=== PATIENT | male | born 1945 | race Caucasian/White ===

== ENCOUNTER 2018-07-01 14:00 | Outpatient (CLI) | payer MEDICARE, MEDICAID ==
[~2018-07-01] VITALS: Ht 170.2 cm; Wt 103.0 kg
[2018-07-01 14:00] VITALS: BP 115/67
[2018-07-01] MEDS ORDERED: PROTONIX40 M1 IVP (15:28)
--- NOTE | 2018-07-01 15:57 | GI Initial Consult Note ---
History of Present Illness General Date patient seen: Jul 01, 2018 Time patient seen: 15:51 Referring physician: ORVILLE Reason for Consultation: PANCREATIC CYST Present Illness HPI Patient is a 73 year old male referred by Dr. Toro for possible pancreatic mass concerning for neoplasm on the pancreatic head which was noted by CT at [facility]. The patent presents today denying any GI symptoms; denies abdominal pain, no N/V/D or constipation. Ambulatory NAD. Here for endoscopic ultrasound to further evaluate the possible mass. Imaging studies reviewed. The patient had colonoscopy back in 2015, noted with a few colonic polyps. Denies any unintentional weight loss or changes in dietary habits. No signs of abuse or neglect. Patient is not fall risk. Home Meds Reported Medications Pantoprazole* (PROTONIX*) 40 Mg Vial, 40 MG IVP DAILY, VIAL 07/01/18 Med list reviewed/reconciled: Yes Allergies: Coded Allergies: No Known Allergies (Unverified , 07/01/18) Patient History History Provided By: Patient, Medical Record PMH Narrative Prostate CA HLD HTN Obesity Pancreatic Lesion HH Colon, diverticulosis Past Surgical History: lower back surgery 2017 neck surgery 2011 Social History: Reports: smoking - quit Review of Systems All Other Systems: negative except mentioned in HPI Physical Exam Vital Signs Date Time Temp Pulse Resp B/P (MAP) Pulse Ox O2 Delivery O2 Flow Rate FiO2 07/01/18 14:00 98.1 76 115/67 95 98.1 Sp02 EP Interpretation: reviewed, normal General Appearance: well appearing, no apparent distress, alert Head: normocephalic EENT: PERRL/EOMI, normal ENT inspection Neck: supple Respiratory: normal breath sounds, no respiratory distress Cardiovascular: normal rate Gastrointestinal: normal inspection, non tender, soft, normal bowel sounds, non -distended Rectal: deferred Genitourinary: deferred Musculoskeletal: normal inspection, back normal Neurologic: normal inspection, alert, oriented x3, responsive Psychiatric: normal inspection, judgement/insight normal, memory normal Skin: normal inspection, normal color, no rash, warm/dry, palpation normal, well hydrated Lymphatic: normal inspection, no adenopathy GI: Plan Problems: (1) Pancreatic lesion (2) Encounter for diagnostic endoscopy (3) Diverticulosis (4) HTN (hypertension) (5) HLD (hyperlipidemia) (6) BPH (benign prostatic hyperplasia) (7) Prostate CA (8) Depressed Plan EUS scheduled 07/03/18. - [facility] obtain records from [facility] Seen with Dr. Garcia. Thank you for this patient referral. The patient was seen and examined at bedside and all new and available data was reviewed in the patients chart. I agree with the above findings, impression and plan. (Patient seen earlier today. Signature stamp does not reflect patient encounter time.). - [facility]ALTH DO[facility] Jul 01, 2018 15:57
[2018-07-01] MEDS ORDERED: CYMBALTA30 MG ORAL (16:11)
[2018-07-01] MEDS ORDERED: TAMSULOSIN HCL0.4 MG ORAL (16:11)
[2018-07-01] MEDS ORDERED: PROSCAR5 MG ORAL (16:11)
[2018-07-01] MEDS ORDERED: METOPROLOL SUCC50 MG ORAL (16:11)
[2018-07-01] MEDS ORDERED: ASPIRIN EC81 MG ORAL (16:11)
[2018-07-01] MEDS ORDERED: ATORVASTATIN CA40 MG ORAL (16:11)
[2018-07-01] MEDS ORDERED: LOSARTAN POTASS50 MG ORAL (16:11)
== END 2018-07-01 14:30 | disposition home or self-care (01) ==
LOC: PAN 14:00
DX: K86.9 Disease of pancreas, unspecified (principal); K57.90 Diverticulosis of intestine, part unspecified, without perforation or abscess without bleeding; I10 Essential (primary) hypertension; E78.5 Hyperlipidemia, unspecified; N40.0 Benign prostatic hyperplasia without lower urinary tract symptoms; C61 Malignant neoplasm of prostate
CPT/HCPCS: 99202

== ENCOUNTER 2018-07-03 08:56 | Day surgery (SDC) | payer MEDICARE, MEDICAID ==
[2018-07-03] VITALS (8 sets, daily range): BP systolic 113–141; BP diastolic 64–75
[~2018-07-03] VITALS: Ht 170.2 cm; Wt 103.0 kg
[~2018-07-03 08:56] MED LIST: ASPIRIN EC81 MG ORAL; ATORVASTATIN CA40 MG ORAL; CYMBALTA30 MG ORAL; LOSARTAN POTASS50 MG ORAL; METOPROLOL SUCC50 MG ORAL; PROSCAR5 MG ORAL; PROTONIX40 M1 IVP; TAMSULOSIN HCL0.4 MG ORAL
--- NOTE | 2018-07-03 09:49 | Pre-Procedure Note/Attestation ---
Pre-Procedure Note/Attestation Complete Prior to Procedure Planned Procedure: not applicable Procedure Narrative: eus Indications for Procedure Pre-Operative Diagnosis: panc mass Attestation I attest that I discussed the nature of the procedure; its benefits; risks and complications; and alternatives (and the risks and benefits of such alternatives ), prior to the procedure, with the patient (or the patient's legal computer help desk representative). I attest that, if there was a reasonable possibility of needing a blood transfusion, the patient (or the patient's legal computer help desk representative) was given the [facility] of Health Services standardized written summary, pursuant to the [place] Blood Safety Act ([place] Health and Safety Code # 1645, as amended). I attest that I re-evaluated the patient just prior to the surgery and that there has been no change in the patient's H&P, except as documented below: Zander Garcia MD Jul 03, 2018 09:49
--- NOTE | 2018-07-03 09:49 | Short Stay Surgery H&P ---
History of Present Illness History of Present Illness Chief Complaint see recent consult note HPI Jose Tan is a 73 year old male who was admitted on for Pancreatic Mass Patient History Allergies: Coded Allergies: No Known Allergies (Unverified , 07/03/18) Medication History Scheduled Aspirin Ec* (Aspirin Ec*), 81 MG ORAL DAILY, (Reported) Atorvastatin Calcium* (Atorvastatin Calcium*), 40 MG ORAL BEDTIME, (Reported) Duloxetine Hcl* (Cymbalta*), 30 MG ORAL BID, (Reported) Finasteride* (Proscar*), 5 MG ORAL DAILY, (Reported) Losartan Potassium* (Losartan Potassium*), 100 MG ORAL DAILY, (Reported) Metoprolol Succinate* (Metoprolol Succinate*), 50 MG ORAL DAILY, (Reported) Tamsulosin Hcl (Tamsulosin Hcl*), 0.4 MG ORAL BEDTIME, (Reported) Physical Exam Vital Signs Last Vital Signs Date Time Temp Pulse Resp B/P (MAP) Pulse Ox O2 Delivery O2 Flow Rate FiO2 07/03/18 09:31 Room Air 07/03/18 09:29 97.6 60 18 130/69 98 97.6 Plan Attestation Are the patient's medical conditions optimized for surgery? Zander Garcia MD Jul 03, 2018 09:49
[2018-07-03] MEDS ORDERED: Lidocaine 1% MPF 10mg/ml 5ml ONE (10:00)
[2018-07-03] MEDS ORDERED: Propofol 200mg/20ml IV ONE (10:00)
--- NOTE | 2018-07-03 10:06 | Anethesia Preoperative Eval ---
Anesthesia Pre-op PMH/ROS General Date of Evaluation: Jul 03, 2018 Time of Evaluation: 10:03 Anesthesiologist: Antonia Torres CRNA ASA Score: ASA 3 Mallampati Score Class I : Soft palate, uvula, fauces, pillars visible Class II: Soft palate, uvula, fauces visible Class III: Soft palate, base of uvula visible Class IV: Only hard plate visible Mallampati Classification: Class III Surgeon: Vandana Diagnosis: pancreatic mass Surgical Procedure: Esophageal ultrasound Anesthesia History: none Social History: smoking Family History: no anesthesia problems Allergies: Coded Allergies: No Known Allergies (Unverified , 07/03/18) Medications: see eMAR Patient NPO?: Yes NPO Date: Jul 03, 2018 NPO Time: 00:00 Past Medical History Cardiovascular: Reports: HTN, other - hyperlipidemai; Denies: CAD, [place], valve dz, arrhythmia Pulmonary: Reports: other - colon CA; Denies: asthma, COPD, BOBBI Gastrointestinal/Genitourinary: Reports: other - prostate CA; Denies: GERD, CRI, ESRD Neurologic/Psychiatric: Denies: dementia, CVA, depression/anxiety, TIA, other Endocrine: Denies: DM, hypothyroidism, steroids, other HEENT: Denies: cataract (L), cataract (R), glaucoma, [place] (L), [place] (R), other Hematology/Immune: Denies: anemia, DVT, bleeding disorder, other Musculoskeletal/Integumentary: Reports: OA, other - hx of cervical and lumbar surgery; Denies: RA, DJD, DDD, edema Other: obesity PMH Narrative: as above PSxH Narrative: back and neck surgery Anesthesia Pre-op Phys. Exam Physician Exam Last Vital Signs Date Time Temp Pulse Resp B/P (MAP) Pulse Ox O2 Delivery O2 Flow Rate FiO2 07/03/18 09:31 Room Air 07/03/18 09:29 97.6 60 18 130/69 98 97.6 Constitutional: NAD Neurologic: CN 2-12 intact Cardiovascular: RRR Respiratory: CTA Gastrointestinal: S/NT/ND, other - obese Airway Exam Mallampati Score: Class III MO: full Neck: no limitations TMD: > 3 FB ROM: full Teeth: intact Dentures: upper, lower Anesthesia Pre-op A/P Studies Pre-op Studies: EKG - SB with 1st degree HB Risk Assessment & Plan Assessment: asa 3, ok to proceed Plan: MAC Status Change Before Surgery: No Pre-Antibiotics Given Within 1 Hr of Incision: Antonia Nuñez CRNA Jul 03, 2018 10:06
[2018-07-03 10:17] LABS: HEMATOCRIT 45.4 % (42.0-52.0); HEMOGLOBIN 15.6 G/DL (14.2-18.0); LYMPHOCYTES % (AUTO) 21.5 % (20.0-45.0); MEAN CORPUSCULAR VOLUME 84 FL (80-99); MONOCYTES % (AUTO) 7.4 % (1.0-10.0); NEUTROPHILS % (AUTO) 67.2 % (45.0-75.0); PLATELET COUNT 206 K/UL (150-450); RED BLOOD COUNT 5.38 M/UL (4.70-6.10); RED CELL DISTRIBUTION WIDTH 10.9 % (11.6-14.8); WHITE BLOOD COUNT 6.3 K/UL (4.8-10.8)
[2018-07-03 10:32] LABS: ANION GAP 11 mmol/L (5-15); BLOOD UREA NITROGEN 18 mg/dL (7-18); CALCIUM 8.6 MG/DL (8.5-10.1); CARBON DIOXIDE 23 MMOL/L (21-32); CHLORIDE 105 MMOL/L (98-107); CREATININE 0.9 MG/DL (0.55-1.30); POTASSIUM 5.7 MMOL/L (3.5-5.1); SODIUM 138 MMOL/L (136-145)
[2018-07-03 10:37] LABS: ALANINE AMINOTRANSFERASE 34 U/L (12-78); ALBUMIN 3.3 G/DL (3.4-5.0); ALBUMIN/GLOBULIN RATIO 0.9 (1.0-2.7); ALKALINE PHOSPHATASE 107 U/L (46-116); AMYLASE 58 U/L (25-115); ASPARTATE AMINO TRANSFERASE 47 U/L (15-37); BILIRUBIN,TOTAL 0.7 MG/DL (0.2-1.0)
--- NOTE | 2018-07-03 10:38 | Endoscopy Procedure Note ---
Endoscopy Procedure Note General Indication for Procedure: ? pancreatic mass Procedures Performed: other - EUS Operative Findings/Diagnosis: fatty pancrease Specimen: none Pt Tolerated Procedure Well: Yes Estimated Blood Loss: none Anesthesia Anesthesiologist: rema Anesthesia: MAC Inserted Devices Implant(s) used?: No GI Core Measures 50 yrs or older w/o bx or poly: Not Applicable 10yrs. F/U not recommended: Not Applicable Zander Garcia MD Jul 03, 2018 10:38
--- NOTE | 2018-07-03 10:51 | Immediate Post-Op Evaluation ---
Immediate Post-Op Evalulation Immediate Post-Op Evalulation Procedure: Endoscopic esophageal ultrasound Date of Evaluation: Jul 03, 2018 Time of Evaluation: 10:41 IV Fluids: 0.9 NS 200 ml Blood Pressure Systolic: 122 Blood Pressure Diastolic: 67 Pulse Rate: 60 Respiratory Rate: 16 O2 Sat by Pulse Oximetry: 99 Temperature (Fahrenheit): 97.1 Pain Score (1-10): 0 Nausea: No Vomiting: No Complications none Patient Status: awake, reacts, patent Hydration Status: adequate Given Within 1 Hr of Incision: Antonia Nuñez CRNA Jul 03, 2018 10:51
--- NOTE | 2018-07-03 11:16 | 48 Hour Post Anesthesia Eval ---
Post Anesthesia Evaluation Procedure: Endoscopic esophageal ultrasound Date of Evaluation: Jul 03, 2018 Time of Evaluation: 11:15 Blood Pressure Systolic: 133 0: 69 Pulse Rate: 58 Respiratory Rate: 17 Temperature (Fahrenheit): 97.2 O2 Sat by Pulse Oximetry: 96 Airway: patent Nausea: No Vomiting: No Pain Intensity: 0 Hydration Status: adequate Cardiopulmonary Status: stable Mental Status/LOC: patient returned to baseline Follow-up Care/Observations: per GI Post-Anesthesia Complications: none Follow-up care needed: ready to discharge Antonia Torres CRNA Jul 03, 2018 11:16
--- NOTE | 2018-07-03 12:45 | Procedure Note ---
DATE OF PROCEDURE: 07/03/2018 SURGEON: Zander Garcia M.D. ANESTHESIOLOGIST: Antoina SAMAYOA. REFERRING PHYSICIAN: 1. Milton Mukherjee M.D. 2. Mark Toro M.D. PROCEDURE: Endoscopic ultrasound. ANESTHESIA: Per Antonia SAMAYOA. INSTRUMENT: Olympus EUS scope. INDICATION: Evidence of question of pancreatic mass seen on imaging studies. The procedure, risks, benefits, and possible consequences, including hemorrhage, aspiration, perforation and infection, and alternative treatments, were explained to the patient/legal guardian by Dr. Zander Garcia and the patient/legal guardian understood and accepted these risks. DESCRIPTION OF PROCEDURE: After informed consent was obtained and the patient was adequately sedated, EUS scope was advanced from the mouth into the second portion of the duodenum and pancreatic parenchyma was carefully examined through the gastroduodenal mucosa. Starting scanning at GE junction, we saw the left adrenal gland without any adenoma. No evidence of any obvious celiac axis lymphadenopathy. The pancreas with normal pancreatic duct. There was significant fatty infiltration of the pancreas. No obvious mass was seen. No obvious cyst was seen. Then, the scope was advanced into the antrum of the stomach. In the stomach , the patient had multiple erosions and the antrum and prepyloric region. Then, the scope was advanced into the duodenal bulb and second portion of duodenum. Gallbladder was seen without any obvious stone or gallbladder wall thickening. Common bile duct was not dilated. Pancreatic duct was not dilated at the head of the pancreas. No obvious mass was seen in the head of the pancreas. At this time, the scope was retrieved and procedure was terminated. SUMMARY OF FINDINGS: Significant fatty infiltration in the pancreatic parenchyma without any pancreatic duct . No common bile duct dilatation. RECOMMENDATIONS: At this time, there was no obvious mass seen in the pancreas fatty infiltration. We will recommend diet and exercise to lose weight and maybe re-imaging at a later time. I want to thank, Dr. Mukherjee and Dr. Mark Toro, for this kind referral. Zander Garcia M.D. DR: Ambrosio JOB#: [id number] CC: Milton Mukherjee M.D.; Fax#: [phone] MARK TORO M.D. ; FAX#: [phone]
--- NOTE | 2018-07-05 16:16 | Cardiology Report ---
APPROVED REPORT EKG Measurement Heart [id number] FL [id number] [id number] Sinus bradycardia with 1st degree AV block Otherwise normal ECG
== END 2018-07-03 11:50 | disposition home or self-care (01) ==
LOC: GAS 08:56
DX: K86.9 Disease of pancreas, unspecified (principal); K25.9 Gastric ulcer, unspecified as acute or chronic, without hemorrhage or perforation; I10 Essential (primary) hypertension; E78.5 Hyperlipidemia, unspecified; M19.90 Unspecified osteoarthritis, unspecified site; E66.9 Obesity, unspecified; Z87.891 Personal history of nicotine dependence; Z85.038 Personal history of other malignant neoplasm of large intestine; Z85.46 Personal history of malignant neoplasm of prostate; Z79.82 Long term (current) use of aspirin
CPT/HCPCS: 36415; 43237; 80053; 82150; 82378; 83690; 85025; 85610; 85730; 93005; J2704; 94003; 94150

== ENCOUNTER 2018-07-10 07:53 | Day surgery (SDC) | payer MEDICARE, MEDICAID ==
[~2018-07-10] VITALS: Ht 172.7 cm; Wt 103.0 kg
[2018-07-10] VITALS (7 sets, daily range): BP systolic 118–142; BP diastolic 61–76
[2018-07-10] MEDS ORDERED: Propofol 200mg/20ml IV ONE (09:40)
[2018-07-10] MEDS ORDERED: Lidocaine 1% MPF 10mg/ml 5ml ONE (09:40)
--- NOTE | 2018-07-10 09:41 | Short Stay Surgery H&P ---
History of Present Illness History of Present Illness Chief Complaint see recent office note HPI Jose Tan is a 73 year old male who was admitted on for Hx Of Colon Polyps Patient History Allergies: Coded Allergies: No Known Allergies (Unverified , 07/03/18) Medication History Scheduled Aspirin Ec* (Aspirin Ec*), 81 MG ORAL DAILY, (Reported) Atorvastatin Calcium* (Atorvastatin Calcium*), 40 MG ORAL BEDTIME, (Reported) Duloxetine Hcl* (Cymbalta*), 30 MG ORAL BID, (Reported) Finasteride* (Proscar*), 5 MG ORAL DAILY, (Reported) Losartan Potassium* (Losartan Potassium*), 100 MG ORAL DAILY, (Reported) Metoprolol Succinate* (Metoprolol Succinate*), 50 MG ORAL DAILY, (Reported) Tamsulosin Hcl (Tamsulosin Hcl*), 0.4 MG ORAL BEDTIME, (Reported) Physical Exam Vital Signs Last Vital Signs Date Time Temp Pulse Resp B/P (MAP) Pulse Ox O2 Delivery O2 Flow Rate FiO2 07/10/18 08:31 Room Air 07/10/18 08:23 97.9 60 18 137/70 97 Plan Attestation Are the patient's medical conditions optimized for surgery? Zander Garcia MD Jul 10, 2018 09:41
--- NOTE | 2018-07-10 09:41 | Pre-Procedure Note/Attestation ---
Pre-Procedure Note/Attestation Complete Prior to Procedure Planned Procedure: not applicable Procedure Narrative: esophagogastroduodenoscopy and colonoscopy Indications for Procedure Pre-Operative Diagnosis: screening colon, GERD Attestation I attest that I discussed the nature of the procedure; its benefits; risks and complications; and alternatives (and the risks and benefits of such alternatives ), prior to the procedure, with the patient (or the patient's legal service support representative). I attest that, if there was a reasonable possibility of needing a blood transfusion, the patient (or the patient's legal service support representative) was given the [facility] of Health Services standardized written summary, pursuant to the [place] Blood Safety Act ([place] Health and Safety Code # 1645, as amended). I attest that I re-evaluated the patient just prior to the surgery and that there has been no change in the patient's H&P, except as documented below: Zander Garcia MD Jul 10, 2018 09:41
--- NOTE | 2018-07-10 10:05 | Anethesia Preoperative Eval ---
Anesthesia Pre-op PMH/ROS General Date of Evaluation: Jul 10, 2018 Time of Evaluation: 09:40 Anesthesiologist: Antonia Torres CRNA ASA Score: ASA 3 Mallampati Score Class I : Soft palate, uvula, fauces, pillars visible Class II: Soft palate, uvula, fauces visible Class III: Soft palate, base of uvula visible Class IV: Only hard plate visible Mallampati Classification: Class III Surgeon: Radha Diagnosis: Colon polyps Surgical Procedure: EGD and colonoscopy Anesthesia History: none Social History: smoking Family History: no anesthesia problems Allergies: Coded Allergies: No Known Allergies (Unverified , 07/03/18) Medications: see eMAR Patient NPO?: Yes NPO Date: Jul 10, 2018 NPO Time: 00:00 Past Medical History Cardiovascular: Reports: HTN, other - Hyperlipidemia; Denies: CAD, [place], valve dz, arrhythmia Pulmonary: Denies: asthma, COPD, BOBBI, other Gastrointestinal/Genitourinary: Reports: other - colon polyps, prostate CA, BPH , diverticulosis; Denies: GERD, CRI, ESRD Neurologic/Psychiatric: Reports: depression/anxiety; Denies: dementia, CVA, TIA, other Endocrine: Denies: DM, hypothyroidism, steroids, other HEENT: Denies: cataract (L), cataract (R), glaucoma, [place] (L), [place] (R), other Hematology/Immune: Denies: anemia, DVT, bleeding disorder, other Musculoskeletal/Integumentary: Denies: OA, RA, DJD, DDD, edema, other Other: obesity Anesthesia Pre-op Phys. Exam Physician Exam Last Vital Signs Date Time Temp Pulse Resp B/P (MAP) Pulse Ox O2 Delivery O2 Flow Rate FiO2 07/10/18 08:31 Room Air 07/10/18 08:23 97.9 60 18 137/70 97 Constitutional: NAD Neurologic: CN 2-12 intact Respiratory: CTA Gastrointestinal: S/NT/ND, other - obese Airway Exam Mallampati Score: Class III MO: full Neck: thick short neck TMD: > 3FB ROM: full Teeth: missing, intact Dentures: no upper, no lower Anesthesia Pre-op A/P Studies Pre-op Studies: EKG - SB with 1st dgree HB Risk Assessment & Plan Assessment: asa 3, ok to proceed Plan: MAC Status Change Before Surgery: No Pre-Antibiotics Given Within 1 Hr of Incision: No Antonia Torres CRNA Jul 10, 2018 10:05
--- NOTE | 2018-07-10 10:43 | Endoscopy Procedure Note ---
Endoscopy Procedure Note General Indication for Procedure: screening colon, GERD Procedures Performed: EGD, colonoscopy Operative Findings/Diagnosis: 15 polyps Specimen: yes Pt Tolerated Procedure Well: Yes Estimated Blood Loss: none Anesthesia Anesthesiologist: rema Anesthesia: MAC Inserted Devices Implant(s) used?: No Quality Quality of Bowel Preparation: Good Did scope reach the cecum?: Yes Was there any complications?: No GI Core Measures 50 yrs or older w/o bx or poly: No 10yrs. F/U not recommended: Yes If not recommended, why?: Above average risk 10 yrs. F/U needed: Yes 18 years or older w/prev. colo: Yes <3yrs. since last colonoscopy: No Zander Garcia MD Jul 10, 2018 10:42
--- NOTE | 2018-07-10 10:51 | Immediate Post-Op Evaluation ---
Immediate Post-Op Evalulation Immediate Post-Op Evalulation Procedure: EGD, colonoscopy, polypectomy Date of Evaluation: Jul 10, 2018 Time of Evaluation: 10:46 IV Fluids: LR 800 ml Blood Pressure Systolic: 125 Blood Pressure Diastolic: 70 Pulse Rate: 50 Respiratory Rate: 16 O2 Sat by Pulse Oximetry: 99 Temperature (Fahrenheit): 97.2 Pain Score (1-10): 2 Nausea: No Vomiting: No Complications none Patient Status: awake, patent Hydration Status: adequate Given Within 1 Hr of Incision: Antonia Nuñez CRNA Jul 10, 2018 10:51
--- NOTE | 2018-07-10 16:30 | Procedure Note ---
DATE OF PROCEDURE: 07/10/2018 SURGEON: Zander Garcia M.D. PROCEDURE: Upper endoscopy with biopsy and colonoscopy with biopsy and snare polypectomy. ANESTHESIA: Per UNARMED SECURITY OFFICER. See the chart. INSTRUMENT: Olympus adult flexible upper endoscope and colonoscope. INDICATION: Screening colonoscope evaluation and history of chronic GERD. REASON FOR PROCEDURE: The procedure, risks, benefits, and possible consequences, including hemorrhage, aspiration, perforation and infection, and alternative treatments, were explained to the patient/legal guardian by Dr. Zander Garcia and the patient/legal guardian understood and accepted these risks. PROCEDURE IN DETAIL: After informed consent was obtained and the patient was adequately sedated, Olympus upper endoscope was advanced from mouth into the second portion of the duodenum and retroflexion was performed in the stomach. The patient had evidence of diffuse gastritis. Random biopsy from antrum and body was obtained to rule out H. pylori infection. Also, the patient had evidence of minimal distal esophagitis. At this time, the upper endoscope was retrieved and the patient was turned over for colonoscopy. First, rectal exam was performed, which showed positive for internal hemorrhoids. Then, the scope was advanced from rectum into the cecum documented by appendiceal orifice, ileocecal valve, and right upper quadrant palpation. Quality of prep was very good. The patient had a total of 15 polyps in this colonoscopy examination, 3 in the cecum, 5 in the ascending colon, and the rest in the transverse colon. The largest of this polyp was measured about 6 mm to 7 mm removed with the snare polypectomy technique. Most of these polyps were removed with the cold biopsy forceps technique. The rest of the exam grossly looked within normal limits. Retroflexion of rectum showed evidence of internal hemorrhoids. SUMMARY OF FINDINGS: 1. Gastritis, status post biopsy. 2. Minimal esophagitis. 3. Fifteen colonic polyps removed, see above for details. 4. Internal hemorrhoids. RECOMMENDATIONS: Follow up biopsies and treat accordingly. We will recommend repeat colonoscopy in one year. I want to thank, Dr. Mark Toro, for this kind referral. Zander Garcia M.D. DR: KALEN JOB#: [id number] CC: Mark Toro M.D.; Fax#: [phone]
[2018-07-11 10:38] VITALS: BP 142/70
--- NOTE | 2018-07-11 10:38 | 48 Hour Post Anesthesia Eval ---
Post Anesthesia Evaluation Procedure: EGD, colonoscopy, polypectomy Date of Evaluation: Jul 10, 2018 Time of Evaluation: 12:05 Blood Pressure Systolic: 142 0: 70 Pulse Rate: 56 Respiratory Rate: 20 Temperature (Fahrenheit): 98.0 O2 Sat by Pulse Oximetry: 97 Nausea: No Vomiting: No Pain Intensity: 0 Hydration Status: adequate Cardiopulmonary Status: stable Mental Status/LOC: patient returned to baseline Follow-up Care/Observations: none Post-Anesthesia Complications: none Follow-up care needed: ready to discharge Antonia Torres CRNA Jul 11, 2018 10:38
== END 2018-07-10 12:05 | disposition home or self-care (01) ==
LOC: GAS 07:53
DX: Z12.11 Encounter for screening for malignant neoplasm of colon (principal); D12.2 Benign neoplasm of ascending colon; D12.0 Benign neoplasm of cecum; D12.3 Benign neoplasm of transverse colon; K64.9 Unspecified hemorrhoids; Z86.010 Personal history of colon polyps; K21.9 Gastro-esophageal reflux disease without esophagitis; K29.70 Gastritis, unspecified, without bleeding; K20.9 Esophagitis, unspecified; I10 Essential (primary) hypertension; E78.5 Hyperlipidemia, unspecified; N40.0 Benign prostatic hyperplasia without lower urinary tract symptoms; F32.9 Major depressive disorder, single episode, unspecified; F41.9 Anxiety disorder, unspecified; E66.9 Obesity, unspecified; Z85.46 Personal history of malignant neoplasm of prostate; Z79.82 Long term (current) use of aspirin
CPT/HCPCS: 43239; 45380; 45385; J2704; 94003; 94150

== ENCOUNTER 2018-07-22 12:53 | Outpatient (CLI) | payer MEDICARE, OTHER ==
--- NOTE | 2018-07-22 13:56 | GI Progress Note ---
Assessment/Plan Problems: (1) Gastritis ICD Codes: K29.70 - Gastritis, unspecified, without bleeding SNOMED: 3411589 (2) Colon polyps ICD Codes: K63.5 - Polyp of colon SNOMED: 23531121 (3) Pancreatic lesion ICD Codes: K86.9 - Disease of pancreas, unspecified SNOMED: 2747588 Status: stable Status Narrative Seen with Dr. Garcia. Assessment/Plan SUMMARY OF FINDINGS reviewed with patient: 1. Gastritis, status post biopsy. 2. Minimal esophagitis. 3. Fifteen colonic polyps removed, see above for details. 4. Internal hemorrhoids. RECOMMENDATIONS: Follow up biopsies and treat accordingly. >> negative for H. Pylori and negative for malignancies We will recommend repeat colonoscopy in one year. RTC prn The patient was seen and examined at bedside and all new and available data was reviewed in the patients chart. I agree with the above findings, impression and plan. (Patient seen earlier today. Signature stamp does not reflect patient encounter time.). - Zander Garcia MD Subjective Gastrointestinal/Abdominal: Reports: no symptoms Objective T 98.6 BP 119/63 P 72 96 RA General Appearance: WD/WN, no apparent distress, alert Cardiovascular: normal rate Respiratory/Chest: normal breath sounds, no respiratory distress Abdominal Exam: normal bowel sounds, non tender, soft Extremities: normal range of motion, non-tender Tyson May NP Jul 22, 2018 13:56
[2018-07-23 13:00] VITALS: BP 119/63
== END 2018-07-22 13:23 | disposition home or self-care (01) ==
LOC: PAN 12:53
DX: K29.70 Gastritis, unspecified, without bleeding (principal); K63.5 Polyp of colon; K86.9 Disease of pancreas, unspecified; K20.9 Esophagitis, unspecified
CPT/HCPCS: 99212

== ENCOUNTER 2019-10-13 09:12 | Day surgery (SDC) | payer MEDICARE, OTHER ==
[~2019-10-13] VITALS: Ht 167.6 cm; Wt 108.9 kg
[2019-10-13] VITALS (8 sets, daily range): BP systolic 105–147; BP diastolic 55–71
[~2019-10-13 09:12] MED LIST changes: +CIALIS5 MG PO; +LR 1000ml 1,000 ML IVLG SCH; +VESICARE5 MG ORAL; +VITAMIN D2000 UNI3 PO
[2019-10-13] MEDS ORDERED: fentaNYL 100 mcg/2 mL IV ONE (09:13)
--- NOTE | 2019-10-13 09:48 | Pre-Procedure Note/Attestation ---
Pre-Procedure Note/Attestation Complete Prior to Procedure Planned Procedure: not applicable Procedure Narrative: colonoscopy Indications for Procedure Pre-Operative Diagnosis: screening Attestation I attest that I discussed the nature of the procedure; its benefits; risks and complications; and alternatives (and the risks and benefits of such alternatives ), prior to the procedure, with the patient (or the patient's legal community representative). I attest that, if there was a reasonable possibility of needing a blood transfusion, the patient (or the patient's legal community representative) was given the [facility] of Health Services standardized written summary, pursuant to the [place] Blood Safety Act ([place] Health and Safety Code # 1645, as amended). I attest that I re-evaluated the patient just prior to the surgery and that there has been no change in the patient's H&P, except as documented below: Zander Garcia MD Oct 13, 2019 09:48
--- NOTE | 2019-10-13 09:49 | Short Stay Surgery H&P ---
History of Present Illness History of Present Illness Chief Complaint see recent office note HPI Jose Tan is a 74 year old male who was admitted on for Colon Polyps Patient History Allergies: Coded Allergies: No Known Allergies (Unverified , 10/13/19) Medication History Scheduled Aspirin Ec* (Aspirin Ec*), 81 MG ORAL DAILY, (Reported) Atorvastatin Calcium* (Atorvastatin Calcium*), 40 MG ORAL BEDTIME, (Reported) Losartan Potassium* (Losartan Potassium*), 100 MG ORAL DAILY, (Reported) Metoprolol Succinate* (Metoprolol Succinate*), 50 MG ORAL DAILY, (Reported) Solifenacin Succinate* (Vesicare*), 5 MG ORAL DAILY, (Reported) Tadalafil (Cialis), 5 MG PO DAILY, (Reported) Tamsulosin Hcl (Tamsulosin Hcl*), 0.4 MG ORAL BEDTIME, (Reported) Miscellaneous Medications Cholecalciferol (Vitamin D3) (Vitamin D), 5,000 UNIT PO, (Reported) Discontinued Medications Duloxetine Hcl* (Cymbalta*), 30 MG ORAL BID, (Reported) Discontinued Reason: MD discontinued med Finasteride* (Proscar*), 5 MG ORAL DAILY, (Reported) Discontinued Reason: MD discontinued med Plan Attestation Are the patient's medical conditions optimized for surgery? Zander Garcia MD Oct 13, 2019 09:49
[2019-10-13] MEDS ORDERED: Propofol 200mg/20ml IV ONE (10:00)
[2019-10-13] MEDS ORDERED: LR 1000ml ONE (10:00)
[2019-10-13] MEDS ORDERED: LR 1000ml 1,000 ML IVLG SCH (10:27)
--- NOTE | 2019-10-13 10:27 | Anethesia Preoperative Eval ---
Anesthesia Pre-op PMH/ROS General Date of Evaluation: Oct 13, 2019 Time of Evaluation: 09:58 Anesthesiologist: Lucila ASA Score: ASA 3 Mallampati Score Class I : Soft palate, uvula, fauces, pillars visible Class II: Soft palate, uvula, fauces visible Class III: Soft palate, base of uvula visible Class IV: Only hard plate visible Mallampati Classification: Class III Surgeon: Radha Diagnosis: Abdomional pain Surgical Procedure: Colonoascopy Anesthesia History: none Social History: smoking - h/o Family History: no anesthesia problems Allergies: Coded Allergies: No Known Allergies (Unverified , 10/13/19) Medications: see eMAR Patient NPO?: Yes Past Medical History Cardiovascular: Reports: HTN; Denies: CAD, DC, valve dz, arrhythmia, other Pulmonary: Denies: asthma, COPD, BOBBI, other Gastrointestinal/Genitourinary: Reports: GERD, other - BPH Prostate CA; Denies: CRI, ESRD Neurologic/Psychiatric: Denies: dementia, CVA, depression/anxiety, TIA, other Endocrine: Denies: DM, hypothyroidism, steroids, other HEENT: Denies: cataract (L), cataract (R), glaucoma, [place] (L), [place] (R), other Hematology/Immune: Denies: anemia, DVT, bleeding disorder, other Musculoskeletal/Integumentary: Reports: OA; Denies: RA, DJD, DDD, edema, other Other: obesity PMH Narrative: as above PSxH Narrative: see H&P Anesthesia Pre-op Phys. Exam Physician Exam Last Vital Signs Date Time Temp Pulse Resp B/P (MAP) Pulse Ox O2 Delivery O2 Flow Rate FiO2 10/13/19 09:53 Room Air 10/13/19 09:52 98.1 77 18 138/69 98 Constitutional: NAD Neurologic: CN 2-12 intact Cardiovascular: RRR, no M/R/G Respiratory: CTA Gastrointestinal: other - obesity Airway Exam Mallampati Score: Class III MO: limited Neck: short ROM: limited Teeth: missing Dentures: no upper, no lower Anesthesia Pre-op A/P Studies Pre-op Studies: EKG - NSR Risk Assessment & Plan Assessment: ASA 3 Plan: MAC Status Change Before Surgery: Los Lopez MD Oct 13, 2019 10:27
[2019-10-13] MEDS ORDERED: fentaNYL 100 mcg/2 mL IV PRN (10:30)
--- NOTE | 2019-10-13 10:38 | Endoscopy Procedure Note ---
Endoscopy Procedure Note General Indication for Procedure: screening Procedures Performed: colonoscopy Operative Findings/Diagnosis: 6 polyps Specimen: yes Pt Tolerated Procedure Well: Yes Estimated Blood Loss: none Anesthesia Anesthesiologist: mekhi Anesthesia: MAC Inserted Devices Implant(s) used?: No Quality Quality of Bowel Preparation: Fair Did scope reach the cecum?: Yes Was there any complications?: No GI Core Measures 50 yrs or older w/o bx or poly: No 10yrs. F/U recommended: Yes If not recommended, why?: Above average risk 18 years or older w/prev. colo: Yes <3yrs. since last colonoscopy: No Zander Garcia MD Oct 13, 2019 10:38
--- NOTE | 2019-10-13 10:47 | Immediate Post-Op Evaluation ---
Immediate Post-Op Evalulation Immediate Post-Op Evalulation Procedure: Colonoscopy Date of Evaluation: Oct 13, 2019 Time of Evaluation: 10:46 IV Fluids: 600 Blood Products: none Estimated Blood Loss: none Urinary Output: none Blood Pressure Systolic: 108 Blood Pressure Diastolic: 56 Pulse Rate: 72 Respiratory Rate: 20 O2 Sat by Pulse Oximetry: 98 Temperature (Fahrenheit): 97.6 Pain Score (1-10): 1 Nausea: No Vomiting: No Complications none Patient Status: awake, patent, none Hydration Status: adequate Los Gaytan MD Oct 13, 2019 10:47
--- NOTE | 2019-10-13 16:45 | Procedure Note ---
DATE OF PROCEDURE: 10/13/2019 SURGEON: Zander Garcia M.D. PROCEDURE: Colonoscopy with biopsy. ANESTHESIA: Per Dr. Gaytan. INSTRUMENT: Olympus adult flexible colonoscope. INDICATION: History of multiple colonic polyps. REASON FOR PROCEDURE: The procedure, risks, benefits, and possible consequences, including hemorrhage, aspiration, perforation and infection, and alternative treatments, were explained to the patient/legal guardian by Dr. Zander Garcia and the patient/legal guardian understood and accepted these risks. PROCEDURE IN DETAIL: After informed consent was obtained and the patient was adequately sedated, first rectal exam was positive for internal hemorrhoids. Then, the scope was advanced from the rectum into the cecum documented by appendix orifice, ileocecal valve, and upper quadrant palpation. Quality of prep overall was fair. The patient had total of six polyps, all removed with cold biopsy forceps technique. Two in the sigmoid, two in the ascending, one in descending, and one in the rectum. Retroflexion of rectum showed evidence of internal hemorrhoids. The patient tolerated the procedure very well without any complication. SUMMARY OF FINDINGS: 1. Fair colonic prep. 2. Six colonic polyps removed. 3. Internal hemorrhoids. RECOMMENDATIONS: Follow up pathology and treat accordingly. We recommend repeat colonoscopy in three years with a better prep. Zander Garcia M.D. DR: GEE JOB#: [id number] CC:
== END 2019-10-13 11:40 | disposition home or self-care (01) ==
LOC: GAS 09:12
DX: K63.5 Polyp of colon (principal); K64.8 Other hemorrhoids; I10 Essential (primary) hypertension; K21.9 Gastro-esophageal reflux disease without esophagitis; Z85.46 Personal history of malignant neoplasm of prostate; E66.9 Obesity, unspecified; Z87.891 Personal history of nicotine dependence; Z68.38 Body mass index [BMI] 38.0-38.9, adult; Z79.82 Long term (current) use of aspirin
CPT/HCPCS: 45380; 93005; J2704; J3010; J7120; 94003; 94150